=== PATIENT | female | born 1960 | race Caucasian/White ===

== ENCOUNTER 2022-06-26 11:53 | Emergency (ER) | payer BC, SELFPAY ==
[2022-06-26 11:58] VITALS: BP 164/88; PULSE 86; RESP 18; TEMP 36.6; O2SAT 99; BMI 24.2
--- NOTE | 2022-06-26 13:20 | W.ED.GENADLT ---
HPI - General Adult General: Chief complaint: Nausea/Vomiting/Diarrhea Stated complaint: Chest Pain HBP Time Seen by Provider: 06/26/22 13:03 History of Present Illness: Patient is a 61-year-old female with with no seen past medical history presents to the emergency room for concerns of elevated blood pressure, headache shoulder pain and arm pain. Patient tells me that she was seen today at her primary care's office was noted to have elevated blood pressure. Patient was then told to come to the emergency room. Patient tells me that for the last few days, she has had fluctuations in her blood pressure that is worse upon standing. Patient has noted multiple elevated blood pressure reading upon standing. Patient also tells me that for the last few days worse with exertion, patient has occasional chest pressure. Patient denies any chest pressure at rest, squeezing chest pain diaphoresis, shortness of breath or focal weakness in the arms or legs. Patient occasionally reports this numbness shooting from the right side of her shoulder to the left. Patient denies any pleuritic chest pain, stabbing chest pain or achy chest pain. Patient also denies any Onset:2-3 days ago Duration:ongoing Location:home Severity:mild/moderate Associated symptoms: Reports chest pain (+mild chest pressure with exertion) and headache(s); Deny dyspnea, nausea, rash, palpitations or vomiting Review of Systems Const: Denies: fever(s) or chills Eyes: Denies: change in vision ENMT: Denies: mouth pain Card: Reports: chest pain (+mild chest pressure with exertion); Denies: palpitations Resp: Denies: dyspnea or non-productive cough GI: Denies: abdominal pain, nausea, vomiting or diarrhea : Denies: dysuria Musc: Reports: other (R to L shoulder sensations); Denies: extremity pain Skin/Breast: Denies: rash or new lesions Neuro: Reports: headache(s); Denies: weakness in extremities Psych: Reports: other (Normal mood) Carl/Lymph: Denies: easy bruising PFSH ED PFSH: Medical History No pertinent past medical history Social History Smoking and tobacco status: never smoked Alcohol intake: never Substance/Drug Use: never Physical Exam Const: COMMON NORMALS: alert HENMT: COMMON NORMALS: atraumatic HEAD & SCALP: atraumatic MOUTH: moist mucous membranes not abnormal Eye: COMMON NORMALS: EOMs intact bilaterally and conjunctivae normal CONJUNCTIVA: Yes conjunctivae normal Neck/C-Spine: COMMON NORMALS: full ROM and supple OTHER: No meningismus signs Resp: COMMON NORMALS: normal respiratory effort and clear to auscultation bilaterally AUSCULTATION: clear to auscultation bilaterally Cardio: COMMON NORMALS: regular rate RATE: regular rate OTHER: 2+ radial pulses b/l GI: COMMON NORMALS: Soft to palpation and non-tender PALPATION: Yes Soft to palpation Extremity: COMMON NORMALS: full ROM OTHER: No lower extremity edema Neuro: SENSORIUM/ORIENTATION: Yes alert MOTOR EXAM: No Abnormal motor strength present and Other motor observations present (no focal motor deficits) Psych: COMMON NORMALS: speech normal SPEECH: Yes normal speech MOOD & AFFECT: Yes euthymic mood Course Vital Signs: Vital signs: Vital Signs Temperature 98 F 06/26/22 11:58 Pulse Rate 71 06/26/22 14:15 Respiratory Rate 16 06/26/22 14:15 Blood Pressure 135/81 06/26/22 14:15 Pulse Oximetry 99 06/26/22 14:15 Oxygen Delivery Me thod 06/26/22 14:15 MDM - General Adult Medical Decision Making 61-year-old female with no known past medical history presenting to the emergency room with complaints of uncontrolled blood pressure, headache, shoulder pain and pressure on exertion. Patient is noted to be hypertensive on arrival in the emergency room. 2+ radial pulses. No complaint no other focal finding on physical exam. Patient has no signs of hypertensive emergency today in the emergency room. Patient reports that her headache and other pain are controlled. Troponin x2 with delta less than 5 her EKG is nonischemic. Patient has a heart score (2 - story and age). Doubt ACS/PE or other emergent causes of chest pressure. No suspicion for aortic dissection given no widened mediastinum, 2+ upper extremity pulses, or tearing pain. No suspicion for PE given no pleuritic chest pain, recent immobilization or surgery hemoptysis, or other VTE risk factors. EKG is non-ischemic. XR normal. Since patient has 2 positive blood pressure reading that are elevated, I will start patient on amlodipine patient is encouraged to keep track of her blood pressure throughout the day and obtain averages. Patient instructed follow-up with her PCP for further adjustment of her blood pressure. In addition, patient has had exertional chest pain. Patient has no complaints chest pain at rest. I will have patient follow-up with Cardiology for evaluation of angina. I have given patient follow up with our insurance case manager to be seen by our outpatient by Cardiology for evaluation of angina. Patient aware of a call from our insurance case manager to schedule for appointment(s) and verbalizes understanding of the importance of following up. Rx amlodipine for elevated blood pressure Disposition: Discharge. Patient counseled regarding diagnostic impression, treatment plan. Patient given ED strict return precautions to return for continuation, worsening, or development of new symptoms. Instructed to f/u w/ PCP regarding symptoms today. Patient verbalized understanding. Lab Data : 06/26/22 13:10 06/26/22 13:10 Radiology Impressions Chest X-Ray 06/26/22 14:37 IMPRESSION: No acute chest abnormality. Laboratory Results WBC 6.8 10^3/uL (4.0-10.0) 06/26/22 13:10 RBC 4.67 10^6/uL (4.1-5.3) 06/26/22 13:10 Hgb 14.8 g/dL (11.5-15.3) 06/26/22 13:10 Hct 44.0 % (37.0-47.0) 06/26/22 13:10 MCV 94.2 fl (81-99) 06/26/22 13:10 MCH 31.7 pg (28.0-34.0) 06/26/22 13:10 MCHC 33.6 g/dL (30.0-36.0) 06/26/22 13:10 RDW 11.9 % (12.1-15.1) L 06/26/22 13:10 Plt Count 242 10^3/cmm (130-400) 06/26/22 13:10 MPV 9.6 fL (7.4-10.4) 06/26/22 13:10 Neut % (Auto) 73.5 % 06/26/22 13:10 Lymph % (Auto) 20.4 % 06/26/22 13:10 [place] % (Auto) 5.5 % 06/26/22 13:10 Eos % (Auto) 0.0 % 06/26/22 13:10 Baso % (Auto) 0.3 % 06/26/22 13:10 Neut # (Auto) 4.96 10^3/uL (1.8-7.7) 06/26/22 13:10 Lymph # (Auto) 1.4 10^3/uL (0.8-4.8) 06/26/22 13:10 [place] # (Auto) 0.4 10^3/uL (0.2-0.9) 06/26/22 13:10 Eos # (Auto) 0.0 10^3/uL (0.0-0.8) 06/26/22 13:10 Baso # (Auto) 0.0 10^3/uL (0.0-0.1) 06/26/22 13:10 Nucleated RBC % (auto) 0 % 06/26/22 13:10 Nucleated RBCs # 0.0 /100WBC 06/26/22 13:10 Sodium 139 mmol/L (136-145) 06/26/22 13:10 Potassium 4.0 mmol/L (3.5-5.1) 06/26/22 13:10 Chloride 100 mmol/L (98-107) 06/26/22 13:10 Carbon Dioxide 28 mmol/L (22-29) 06/26/22 13:10 Anion Gap 15.0 (5-19) 06/26/22 13:10 BUN 11 mg/dL (8-23) 06/26/22 13:10 Creatinine 0.7 mg/dL (0.5-0.9) 06/26/22 13:10 GFR Calculation 85.4 mL/min (90-130) L 06/26/22 13:10 Glucose 119 mg/dL (65-115) H 06/26/22 13:10 Calculated Osmolality 289 mOsm/kg (285-295) 06/26/22 13:10 Calcium 10.1 mg/dL (8.5-10.5) 06/26/22 13:10 Total Bilirubin 0.3 mg/dL (0.15-1.2) 06/26/22 13:10 AST 21 U/L (0-32) 06/26/22 13:10 ALT 23 U/L (0-33) 06/26/22 13:10 Alkaline Phosphatase 89 U/L (35-105) 06/26/22 13:10 Troponin T Baseline 6 ng/L (0-10) 06/26/22 13:10 Troponin T 120 Minute 7.78 ng/L (0-10) 06/26/22 15:10 Delta Troponin T 1.78 ABS# (0-10) 06/26/22 15:10 Total Protein 7.5 g/dL (6.6-8.7) 06/26/22 13:10 Albumin 4.8 g/dL (3.5-5.2) 06/26/22 13:10 Globulin 2.7 g/dL (1.3-4.6) 06/26/22 13:10 Lipase 27 U/L (13-60) 06/26/22 13:10 Urine Color Straw (Yellow) 06/26/22 13:20 Urine Appearance Clear (CLEAR) 06/26/22 13:20 Urine pH 6 (5-7) 06/26/22 13:20 Ur Specific [place] 1.010 (1.005-1.030) 06/26/22 13:20 Urine Protein Neg (Negative) 06/26/22 13:20 Urine Glucose (UA) Norm (Normal) 06/26/22 13:20 Urine Ketones Negative (Negative) 06/26/22 13:20 Urine Blood Neg (Negative) 06/26/22 13:20 Urine Nitrate Negative (Negative) 06/26/22 13:20 Urine Bilirubin Neg (Negative) 06/26/22 13:20 Urine Urobilinogen Norm mg/dL (Negative) 06/26/22 13:20 Ur Leukocyte Esterase Negative (Negative) 06/26/22 13:20 Imaging Data Other Imaging: Radiologist's impression: [address] [address] XRay Report Signed Patient: Zakiya Blair Unit #: [id number] : 1960 Age/Sex: 61 / F ADM Date: 06/26/22 Loc: ER Room/Bed: Attending Dr: Ordering Provider/Ordering MD: Zach Blank MD Date of Service: 06/26/22 Procedure(s): XR chest 1V portable 41015 Accession Number(s): [id number] Report Number: [id number] WS: [id number] XR chest 1V portable [id number] REASON FOR EXAM: dyspnea FINDINGS: Mild tortuosity the thoracic aorta. Normal heart size. Calcified granulomatous disease bilaterally. No acute pulmonary parenchymal or pleural abnormality. No significant abnormality of the bony thorax. XR/XR chest 1V portable [id number] IMPRESSION: No acute chest abnormality. ? ? Dictated By: Bin Jenkins Jr, MD Signed By: Bin Jenkins Jr, MD Signed Date/Time: 06/26/221517 DD/ 55 Discharge Plan Discharge Patient Disposition: Home Clinical Impression: Dyspnea, Hypertension Condition: Stable Prescriptions: New acetaminophen 500 mg tablet 500 mg PO Q6H PRN (Reason: pain) 5 Days Qty: 20 0RF amlodipine 5 mg tablet 5 mg PO DAILY 20 Days Qty: 20 0RF No Action tramadol 50 mg tablet 50 mg PO DAILY cranberry extract 250 mg Capsule 250 mg PO DAILY Rx Instructions: administer with a meal Discharge Orders: Discharge ED (Routine); Ordered 06/26/22 Ordered By: Zach Blank Discharge Diet: Advance as tolerated Discharge Activity: Increase activity as tolerated Activity Restrictions/Additional Instructions: Come back to the emergency room if your chest pain worsens, have any fever or chills, worsening shortness of breath, worsening exertional lightheadedness, or any new or concerning complaints. You need to follow-up with your primary care provider for further adjustment of your blood pressure. Your blood pressure puts you at risk for developing strokes and heart attack. Therefore it is very important for you to follow-up with this number to see if the numbers improve gradually. Because blood pressure adjustment is a gradual process, were not able to change it in 1 visit. Therefore please log your blood pressure and follow-up with your primary care provider in the next 72 hours for further adjustment of your blood pressures. Coding Level of Care Code ED Telecommunications Professional for Аннаg Fwd Exam Comprehensive
[2022-06-26] MEDS: acetaminophen 500 mg Tablet PO (13:27)
[2022-06-26] MEDS: ondansetron 2 mg/ML SDV 2 mL 4 MG IVP (13:27)
[2022-06-26] MEDS: sodium chloride 0.9% 1,000 ML 999 ML IV (13:28)
[2022-06-26 13:33] VITALS: BP 151/86; PULSE 80; RESP 15; O2SAT 99
[2022-06-26 13:34] LABS: Basophils % 0.3 %; Hemoglobin 14.8 g/dL (11.5-15.3); Lymphocytes # 1.4 10^3/uL (0.8-4.8); Lymphocytes % 20.4 %; Mean Corpuscular HGB Conc 33.6 g/dL (30.0-36.0); Mean Corpuscular Hemoglobin 31.7 pg (28.0-34.0); Mean Corpuscular Volume 94.2 fl (81-99); Mean Platelet Volume 9.6 fL (7.4-10.4); Monocytes # 0.4 10^3/uL (0.2-0.9); Monocytes % 5.5 %; Neutrophils # 4.96 10^3/uL (1.8-7.7); Neutrophils % 73.5 %; Nucleated Red Blood Cells % 0 %; Platelet Count 242 10^3/cmm (130-400); Red Blood Count 4.67 10^6/uL (4.1-5.3); Red Cell Distribution Width 11.9 % (12.1-15.1); White Blood Count 6.8 10^3/uL (4.0-10.0)
[2022-06-26 14:03] LABS: Add Urine Microscopic? NO; Charge for UA Resulting for Rev
[2022-06-26 14:06] LABS: Alanine Aminotransferase 23 U/L (0-33); Albumin Level 4.8 g/dL (3.5-5.2); Alkaline Phosphatase 89 U/L (35-105); Aspartate Amino Transferase 21 U/L (0-32); Blood Urea Nitrogen 11 mg/dL (8-23); Calcium 10.1 mg/dL (8.5-10.5); Carbon Dioxide 28 mmol/L (22-29); Chloride 100 mmol/L (98-107); Creatinine Clr Calc Pharmacy 84.7242; Globulin 2.7 g/dL (1.3-4.6); Glomerular Filtration Rate 85.4 mL/min (90-130); Glucose 119 mg/dL (65-115); Lipase 27 U/L (13-60); Osmolality Calculated 289 mOsm/kg (285-295); Sodium 139 mmol/L (136-145); Total Bilirubin 0.3 mg/dL (0.15-1.2); Total Protein 7.5 g/dL (6.6-8.7)
[2022-06-26 14:15] VITALS: BP 135/81; PULSE 71; RESP 16; O2SAT 99
[2022-06-26 14:18] LABS: Bilirubin Urine Neg (Negative); Blood Urine Neg (Negative); Glucose Urine UA Norm (Normal); Ketones Urine Negative (Negative); Leukocyte Esterase Urine Negative (Negative); Nitrate Urine Negative (Negative); Protein Urine Neg (Negative); Urine Appearance Clear (CLEAR); Urine Color Straw (Yellow); Urobilinogen Urine Norm (Negative); pH Urine 6 (5-7)
--- NOTE | 2022-06-26 14:37 | XR_ITS ---
WS: [id number] XR chest 1V portable [id number] REASON FOR EXAM: dyspnea FINDINGS: Mild tortuosity the thoracic aorta. Normal heart size. Calcified granulomatous disease bilaterally. No acute pulmonary parenchymal or pleural abnormality. No significant abnormality of the bony thorax. XR/XR chest 1V portable [id number] IMPRESSION: No acute chest abnormality.
[2022-06-26 15:24] LABS: Troponin(5th) Baseline 6 ng/L (0-10)
[2022-06-26 15:32] LABS: Troponin 5 2HR 7.78 ng/L (0-10)
[2022-06-26 15:49] LABS: Troponin 5 2HR Delta 1.78 ABS# (0-10)
[2022-06-26 18:29] LABS: Adenovirus Not Detected (NOT DETECT); Chlamydia Pneumoniae Not Detected (NOT DETECT); Coronavirus 229E,HKU1,NL63,OC4 Not Detected (NOT DETECT); Human Metapneumovirus Not Detected (NOT DETECT); Human Rhinovirus/Enterovirus Not Detected (NOT DETECT); Influenza A Not Detected (NOT DETECT); Influenza A H1 Not Detected (NOT DETECT); Influenza A H1-2009 Not Detected (NOT DETECT); Influenza A H3 Not Detected (NOT DETECT); Influenza B Not Detected (NOT DETECT); Mycoplasma Pneumoniae Not Detected (NOT DETECT); Parainfluenza Virus Type 1 Not Detected (NOT DETECT); Parainfluenza Virus Type 2 Not Detected (NOT DETECT); Parainfluenza Virus Type 3 Not Detected (NOT DETECT); Parainfluenza Virus Type 4 Not Detected (NOT DETECT); Respiratory Syncytial Virus A Not Detected (NOT DETECT); Respiratory Syncytial Virus B Not Detected (NOT DETECT); SARS-COV-2 Not Detected (NOT DETECT)
--- NOTE | 2022-06-27 11:10 | DCPLANNER ---
Addendum entered by Selene Ballard 06/27/22 14:10: land surveyor manager received the following message from [facility] regarding follow up appointment: Spoke with patient. Patient would like to be seen in [place] patient stated her primary care doctor would take care of it. Thank you! Original Note: land surveyor manager had message to schedule a follow up appointment for patient with cardiology. land surveyor manager sent patients information to the front office staff at [facility]. Patients information will be printed and reviewed. Clinic will call patient with appointment information.
== END 2022-06-26 17:19 | disposition home or self-care (01) ==
PROVIDERS: Emergency Provider Emergency Medicine
DX: I10 Essential (primary) hypertension (principal); R06.00 Dyspnea, unspecified
CPT/HCPCS: 36415; 71045; 80053; 81003; 83690; 84484; 85025; 87635; 96361; 96374; 99285; J2405; J7030